=== PATIENT | female | born 1955 | race Caucasian/White ===

== ENCOUNTER → 2023-03-15 | Outpatient (CLI) | payer OTHER ==
[~2023-03-15] MED LIST: ATOR10 PO; IBUP200C5 PO; MULT-1203 PO
[2023-03-15 12:10] LABS: ALBUMIN 3.8 g/dL (3.5-5.0); BILIRUBIN,TOTAL 0.3 mg/dL (0.2-1.0); CREATININE 0.7 mg/dL (0.5-1.5); POTASSIUM 4.5 mmol/L (3.5-5.1); TOTAL PROTEIN, SERUM 6.9 g/dL (6.0-8.3)
== END | disposition home or self-care (01) ==
LOC: LAB 09:15
PROVIDERS: ATTEND Student in an Organized Health Care Education/Training Program
DX: R07.89 Other chest pain (principal)
CPT/HCPCS: 36415; 80053

== ENCOUNTER → 2023-03-17 | Outpatient (CLI) | payer OTHER ==
[~2023-03-17] MED LIST changes: +IOHEXOL 350 MG/ML 100ML INFUS..BTL IV ONE
== END | disposition home or self-care (01) ==
LOC: RAH 10:18
PROVIDERS: ATTEND Student in an Organized Health Care Education/Training Program
DX: I25.10 Atherosclerotic heart disease of native coronary artery without angina pectoris (principal); R07.89 Other chest pain; M47.815 Spondylosis without myelopathy or radiculopathy, thoracolumbar region
CPT/HCPCS: 75574; Q9967

== ENCOUNTER → 2023-06-22 | Outpatient (CLI) | payer OTHER ==
[~2023-06-22] MED LIST changes: -IOHEXOL 350 MG/ML 100ML INFUS..BTL IV ONE
== END | disposition home or self-care (01) ==
LOC: RAH 07:40
PROVIDERS: ATTEND Student in an Organized Health Care Education/Training Program
DX: R07.89 Other chest pain (principal)
CPT/HCPCS: 78452; 96374; 93017; A9500 ×2

== ENCOUNTER 2024-12-14 06:39 | Day surgery (SDC) | payer OTHER ==
[2024-12-14] VITALS (10 sets, daily range): BP systolic 118–142; BP diastolic 55–68; PULSE 50–60; RESP 14–18; TEMP 97–97.7
[~2024-12-14] VITALS: Ht 170.2 cm; Wt 88.5 kg
[~2024-12-14 06:39] MED LIST changes: +0.9%NACL 1000ML 1,000 ML IV ONE; +APIX5TAB PO; +ASPI-1005 PO; +CETI10TA57 PO; +DILT60CA PO; +FLEC50TA3 PO; -IBUP200C5 PO; +LANS15CA17 PO; +LISI10TA24 PO; -MULT-1203 PO
[2024-12-14] MEDS ORDERED: proPOFol 10 MG/ML 20ML VIAL IV ONE (09:36)
[2024-12-14] MEDS ORDERED: LIDOCAINE HCL 1% 20 ML VIAL ONE (09:36)
--- NOTE | 2024-12-14 10:57 | NUR ---
Full and complete discharge instructions given to Patient and Family both verbally and in writing. Explained GI procedure precautions and follow up. All questions answered. PIV removed with catheter tip intact. Home with Family W/C to POV.
== END 2024-12-14 10:55 | disposition home or self-care (01) ==
LOC: DAH 06:39 → ENDO 06:39
PROVIDERS: ATTEND Internal Medicine Gastroenterology
DX: Z12.11 Encounter for screening for malignant neoplasm of colon (principal); D12.3 Benign neoplasm of transverse colon; K64.0 First degree hemorrhoids; K57.30 Diverticulosis of large intestine without perforation or abscess without bleeding; K21.00 Gastro-esophageal reflux disease with esophagitis, without bleeding; I10 Essential (primary) hypertension; E78.5 Hyperlipidemia, unspecified; I48.91 Unspecified atrial fibrillation; F41.9 Anxiety disorder, unspecified; F32.A Depression, unspecified; Z79.899 Other long term (current) drug therapy; Z79.82 Long term (current) use of aspirin; Z90.49 Acquired absence of other specified parts of digestive tract
CPT/HCPCS: 45380; J7030; J2704; A4620; A4649; A4215 ×2; A4223; A4222; A4221; A4663; A4606; 45382; J3490